=== PATIENT | female | born 1940 | race Caucasian/White ===

== ENCOUNTER 2016-07-10 06:14 | Inpatient (IN) | payer MEDICARE, OTHER ==
[2016-06-17 11:03] VITALS: BMI 24.5
[2016-06-17 11:11] VITALS: BP_SYST 120; RESP 20; TEMP 97.6
[~2016-07-10] VITALS: Ht 154.9 cm; Wt 57.8 kg
[2016-07-10] VITALS (24 sets, daily range): BP systolic 101–132; RESP 10–20; TEMP 97.4–98.9; Ht 154.9 cm; Wt 57.8 kg
[2016-07-10] MEDS ORDERED: ROPIVACAINE 0.5% 139 MG, EPINEPHrine 1:1,000 0.2 MG, KETOROLAC INJ 30 MG, MORPHINE 10 MG SUBQ ONE ×4 (06:25)
[2016-07-10] MEDS ORDERED: CEFAZOLIN 2,000 MG in SODIUM CHLORIDE 0.9% 100 ML IV ONE (06:25)
[2016-07-10] MEDS ORDERED: TRANEXAMIC ACID IV ONE ×4 (06:35)
[2016-07-10] MEDS ORDERED: SODIUM CHLORIDE 0.9% IV ONE ×4 (06:35)
[2016-07-10] MEDS ORDERED: MIDAZOLAM 2 MG/2 ML INJ IV ONE (06:40)
[2016-07-10] MEDS ORDERED: LACT RINGERS 1,000 ML IV SCH (06:40)
[2016-07-10] MEDS ORDERED: GLYCOPYRROLATE 0.2 MG/ML VIAL IV ONE ×2 (06:40→10:26)
[2016-07-10] MEDS ORDERED: LIDOCAINE 1% BUFFERED 1 ML SYR INTRADERM PRN (06:40)
[2016-07-10] MEDS ORDERED: ACETAMINOPHEN 1,000 MG/100 ML IV ONE ×2 (07:40→10:26)
[2016-07-10] MEDS ORDERED: MORPHINE 4 MG/ML SYR IV PRN ×2 (07:40→09:05)
[2016-07-10] MEDS ORDERED: OXYCODONE 5 MG TAB PO PRN (07:40)
[2016-07-10] MEDS ORDERED: MORPHINE 2 MG/ML SYR IV PRN ×2 (07:40→09:05)
[2016-07-10] MEDS ORDERED: ONDANSETRON 4 MG VIAL IV PRN (07:40)
[2016-07-10] MEDS ORDERED: ONDANSETRON 4 MG TAB PO PRN (09:05)
[2016-07-10] MEDS ORDERED: SALINE FLUSH 10 ML FLUSH PRN (09:05)
[2016-07-10] MEDS ORDERED: MAG HYDROX 30 ML UDC PO PRN (09:05)
[2016-07-10] MEDS ORDERED: ZOLPIDEM 5 MG TAB PO PRN (09:05)
[2016-07-10] MEDS: DILAUDID 1 MG/ML AMP IV PRN ×2 (09:14→09:30)
[2016-07-10] MEDS: MEPERIDINE 25 MG/ML IV PRN ×2 (09:15→10:05)
[2016-07-10] MEDS ORDERED: BACITRACIN 50,000 UNITS INJ IRRIG ONE (10:14)
[2016-07-10] MEDS ORDERED: FENTANYL 100 MCG/2 ML AMP IV ONE (10:26)
[2016-07-10] MEDS ORDERED: NEOSTIGMINE 10 MG/10 ML VIAL IV ONE (10:26)
[2016-07-10] MEDS ORDERED: ROCURONIUM 50 MG VIAL IV ONE (10:26)
[2016-07-10] MEDS ORDERED: PROPOFOL 20 ML VIAL IV ONE (10:26)
[2016-07-10] MEDS ORDERED: LIDOCAINE 2% SYR 5 ML IV ONE (10:26)
[2016-07-10] MEDS ORDERED: ONDANSETRON 4 MG VIAL IV PUSH ONE (10:26)
[2016-07-10] MEDS ORDERED: LIDOCAINE/EPI 2% MPF 20 ML EPIDURAL ONE (10:32)
[2016-07-10] MEDS ORDERED: ROPIVACAINE 5 MG/ML 30 ML EPIDURAL ONE (10:32)
[2016-07-10] MEDS: D5-1/2-NS W/KCL 20MEQ/L 1,000 ML IV SCH (11:32)
[2016-07-10] MEDS: KETOROLAC 30 MG/ML VIAL IV PRN ×2 (11:33→18:06)
[2016-07-10] MEDS: CEFAZOLIN 2,000 MG in SODIUM CHLORIDE 0.9% 100 ML IV SCH ×2 (12:08→18:10)
[2016-07-10] MEDS: FAMOTIDINE 20 MG TAB PO SCH ×2 (13:55→21:58)
[2016-07-10] MEDS: ONDANSETRON 4 MG VIAL IV PRN (14:38)
[2016-07-10] MEDS: SALINE FLUSH 10 ML FLUSH SCH (20:00)
[2016-07-10] MEDS: CALCIUM CARB/VIT D3 600 MG TAB PO SCH (21:00)
[2016-07-10] MEDS ORDERED: DOCUSATE SOD 100 MG CAP PO SCH (21:00)
[2016-07-10] MEDS: SENNA 8.6 MG TAB PO SCH (21:57)
[2016-07-10] MEDS: DOCUSATE SOD 100 MG CAP PO SCH (21:58)
[2016-07-11] VITALS (8 sets, daily range): BP systolic 108–130; RESP 16–20; TEMP 98.3–99.4
[2016-07-11] MEDS: D5-1/2-NS W/KCL 20MEQ/L 1,000 ML IV SCH (00:28)
[2016-07-11] MEDS: CEFAZOLIN 2,000 MG in SODIUM CHLORIDE 0.9% 100 ML IV SCH ×2 (00:29→05:43)
[2016-07-11] MEDS: KETOROLAC 30 MG/ML VIAL IV PRN ×2 (03:34→18:31)
[2016-07-11] MEDS: SODIUM CHLORIDE 0.9% FLUSH BAG 500 ML IV SCH (05:12)
[2016-07-11] MEDS: FONDAPARINUX 2.5 MG SYR SUBQ SCH (05:43)
[2016-07-11] MEDS ORDERED: MAG HYDROX 30 ML UDC PO SCH (09:00)
[2016-07-11] MEDS ORDERED: MISSING DOSE XX ONE (09:20)
[2016-07-11] MEDS: SALINE FLUSH 10 ML FLUSH SCH ×2 (09:22→21:11)
[2016-07-11] MEDS: POLYETHYLENE GLYCOL 17 GM PACKET PO SCH (09:22)
[2016-07-11] MEDS: FAMOTIDINE 20 MG TAB PO SCH ×2 (09:23→21:12)
[2016-07-11] MEDS: MULTIVITS/MINERALS (THERAGRAN M) TAB PO SCH (09:23)
[2016-07-11] MEDS: SENNA 8.6 MG TAB PO SCH ×2 (09:23→21:12)
[2016-07-11] MEDS: DOCUSATE SOD 100 MG CAP PO SCH ×2 (09:23→21:12)
[2016-07-11] MEDS: NEB-XOPENEX 0.63 MG/3 ML INH SCH ×4 (09:35→22:17)
[2016-07-11] MEDS ORDERED: FLEET ENEMA 132 ML BTL RECTAL PRN (10:35)
[2016-07-11] MEDS ORDERED: BISACODYL 10 MG SUPP RECTAL PRN (10:35)
[2016-07-11] MEDS: Atorvastatin 10 MG TAB PO SCH (11:31)
[2016-07-11] MEDS: CALCIUM CARB/VIT D3 600 MG TAB PO SCH ×2 (11:31→21:12)
[2016-07-11] MEDS: LISINOPRIL 20 MG TAB PO SCH (11:31)
[2016-07-11] MEDS: ONDANSETRON 4 MG VIAL IV PRN (16:34)
[2016-07-11] MEDS: MAG HYDROX 30 ML UDC PO SCH (20:00)
[2016-07-12] MEDS: KETOROLAC 30 MG/ML VIAL IV PRN (03:00)
[2016-07-12 03:23] VITALS: BP_SYST 127; RESP 20; TEMP 97.3
[2016-07-12] MEDS: SODIUM CHLORIDE 0.9% FLUSH BAG 500 ML IV SCH (05:08)
[2016-07-12] MEDS: FONDAPARINUX 2.5 MG SYR SUBQ SCH (05:53)
[2016-07-12] MEDS: NEB-XOPENEX 0.63 MG/3 ML INH SCH ×2 (06:24→15:00)
[2016-07-12 07:30] VITALS: BP_SYST 131; RESP 18; TEMP 98.3
[2016-07-12] MEDS: ONDANSETRON 4 MG VIAL IV PRN (08:16)
[2016-07-12] MEDS: SALINE FLUSH 10 ML FLUSH SCH (08:17)
[2016-07-12] MEDS: MAG HYDROX 30 ML UDC PO SCH (08:19)
[2016-07-12] MEDS: POLYETHYLENE GLYCOL 17 GM PACKET PO SCH (08:20)
[2016-07-12] MEDS: FAMOTIDINE 20 MG TAB PO SCH (08:20)
[2016-07-12] MEDS: CALCIUM CARB/VIT D3 600 MG TAB PO SCH (08:21)
[2016-07-12] MEDS: MULTIVITS/MINERALS (THERAGRAN M) TAB PO SCH (08:21)
[2016-07-12] MEDS: DOCUSATE SOD 100 MG CAP PO SCH (08:21)
[2016-07-12] MEDS: Atorvastatin 10 MG TAB PO SCH (08:21)
[2016-07-12] MEDS: SENNA 8.6 MG TAB PO SCH (08:22)
[2016-07-12] MEDS: LISINOPRIL 20 MG TAB PO SCH (08:24)
[2016-07-12 12:00] VITALS: BP_SYST 139; RESP 18; TEMP 98
[2016-07-12 12:26] VITALS: BP_SYST 131; RESP 18; TEMP 98.3
== END 2016-07-12 15:40 | disposition home or self-care (01) | DRG 470 ==
LOC: ENRESERVTM → ENRESERVDT → SDS 06:14 → ENPENDDIS 06:14 → 2NO 10:23
PROVIDERS: ADMIT Internal Medicine; ATTEND Internal Medicine
PROC: 3E0T3BZ Introduction of Anesthetic Agent into Peripheral Nerves and Plexi, Percutaneous Approach (ICD-10-PCS; 2016-07-10)
PROC: 0SRD0J9 Replacement of Left Knee Joint with Synthetic Substitute, Cemented, Open Approach (ICD-10-PCS; principal; 2016-07-10 07:20)
DX: M17.12 Unilateral primary osteoarthritis, left knee (principal); J44.9 Chronic obstructive pulmonary disease, unspecified; E78.5 Hyperlipidemia, unspecified; I10 Essential (primary) hypertension; M47.9 Spondylosis, unspecified; F17.210 Nicotine dependence, cigarettes, uncomplicated; Z79.82 Long term (current) use of aspirin
CPT/HCPCS: 80048; 85014; 85018; 85025; 86850; 86900; 86901; 94640; 94762; 94799